=== PATIENT | female | born 1970 | race Caucasian/White ===

== ENCOUNTER 2019-06-06 18:40 | Outpatient (CLI) | payer OTHER, SELFPAY ==
--- NOTE | ~2019-06-06 | XR_ITS ---
XR foot RT 2V 06/06/2019 19:02 Indication: Right foot pain after trauma Procedure: 2 views right foot Comparison: 09/15/2008 Findings: There is osteoarthritis of the first MTP joint. No acute fracture or traumatic malalignment . Lisfranc joint intact. There are degenerative changes at the calcaneal cuboid joint. No focal soft tissue abnormality. No radiopaque foreign bodies. Impression: 1: No acute fracture. Reviewed, dictated and finalized at location A. Impression: 1: No acute fracture.
== END 2019-06-06 18:41 | disposition home or self-care (01) ==
LOC: ANHIMG 18:48
PROVIDERS: PCP Internal Medicine; Visit Provider Internal Medicine Rheumatology
DX: M79.671 Pain in right foot (principal)
CPT/HCPCS: 73620

== ENCOUNTER → 2023-04-18 15:13 | Outpatient (CLI) | payer OTHER, SELFPAY ==
--- NOTE | ~2023-04-18 | XR_ITS ---
EXAMINATION: XR hip RT min 2V DATE: 04/18/2023 15:57 INDICATION: Right hip pain. TECHNIQUE: 2 views of right hip were obtained. COMPARISON: Right hip radiographs 05/13/2017 FINDINGS: Bone alignment is normal. No fracture. There is advanced right hip osteoarthritis. IMPRESSION: 1. Advanced right hip osteoarthritis. Reviewed, dictated and finalized at location E. 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
--- NOTE | ~2023-04-18 | XR_ITS ---
Lumbosacral Spine: AP and lateral views Clinical History: Pain Findings: The normal lordotic curve is maintained. The vertebral bodies and posterior elements are i ntact. The intervertebral disc spaces are preserved. There is facet arthropathy at the lower lumbar spine. The sacroiliac joints are normally outlined. Impression: Facet arthropathy lower lumbar spine. Reviewed, dictated and finalized at [facility]. 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
--- NOTE | ~2023-04-18 | DEXA_ITS ---
Bone Density Report Name: SHEKHAR BELTRAN Age: 53 Sex: Female Ethnicity: White Date of : 1970 Indication: postmenopausal; screening for osteoporosis; hysterectomy; Referring Provider: YOKO LIZARRAGA Study: Bone densitometry was performed. Exam Date: April 18, 2023 Accession number: [id number] Bone Density: Region BMD T-score Z-score Classification AP Spine (L1-L4) 1.106 0.5 1.5 Normal Femoral Neck (Left) 0.921 0.7 1.6 Normal Total Hip (Left) 1.066 1.0 1.6 Normal Femoral Neck (Right) 0.931 0.7 1.7 Normal Total Hip (Right) 1.047 0.9 1.5 Normal Total Hip Mean 1.057 1.0 1.6 Normal World Health Organization criteria for BMD impression classify patients as: Normal (T-score at or above -1.0), Osteopenia (T-score between -1.0 and -2.5), or Osteoporosis (T-score at or below -2.5). 10-year Fracture Risk: FRAX not reported because: All T-scores for Spine Total, Hip Total, Femoral Neck at or above -1.0 Clinical Information Provided by Patient: Has used the following medications: Vitamin D Has the following medical conditions: Hysterectomy Patient maximum height was 69.75 Menopause Age: 34 No regular weight bearing exercise Onset of menses at age 11 Number of children 2 Missed period for more than 6 months in a row Impression: The patient has normal bone mass. Discussion: BONE DENSITY IS ABOVE THE MINIMUM DESIRABLE LEVEL AT ALL SKELETAL SITES TESTED. This patient?s bone mineral density is above the minimum desirable level (T-score -1.0 or better) at all sites measured. The patient should follow a healthful lifestyle (good nutrition with adequate calcium and vitamin D, and appropriate weight-bearing exercise). Follow-Up: Consider repeating this study in 5 years or sooner if there is some new clinical indication. Reported by: [facility] on 04/18/2023 3:44:00 PM. Reviewed, dictated and finalized at location ADeja MEDINA
== END ==
PROVIDERS: PCP Nurse Practitioner Adult Health; Visit Provider Nurse Practitioner Adult Health
DX: M16.11 Unilateral primary osteoarthritis, right hip (principal); M54.50 Low back pain, unspecified; Z90.710 Acquired absence of both cervix and uterus; Z78.0 Asymptomatic menopausal state
CPT/HCPCS: 72100; 73502; 77080

== ENCOUNTER 2023-04-25 15:33 | Outpatient (CLI) | payer OTHER, SELFPAY ==
--- NOTE | 2023-04-25 15:40 | ECHO_ITS ---
Patient Info Name: Meche Evans Age: 53 years : 1970 Gender: Female Ht: 68 in Wt: 298 lbs BSA: 2.62 m2 HR: 88 bpm BP: 189 / 118 mmHg Heart Rhythm: Sinus Rhythm Technical Quality: Good Exam Date: 04/25/2023 3:49 PM Exam Location: Echo Lab Patient Status: Outpatient Admit Date: 04/25/2023 Staff Ordering Physician: Xiao Garduno APRN Special Education Resource Teacher: Ravinder Russ RDCS Attending Provider: Xiao Garduno APRN Referring Physician: Shaan YEAGER; Exam Type: CA echo doppler color flow Study Info Indications - sob Complete two-dimensional, color flow and Doppler transthoracic echocardiogram is performed. Summary 1. Complete two-dimensional, color flow and Doppler transthoracic echocardiogram is performed. 2. Left ventricular chamber dimension is mildly enlarged. 3. Left ventricular systolic function is moderately reduced, estimated at 35% with relative sparing of the apex. 4. There is mildly increased left ventricular wall thickness. 5. Left ventricular septal wall motion is abnormal with septal motion related to bundle branch block. 6. The left ventricular diastolic function is grade I diastolic dysfunction. 7. Technically difficult study with limited views. 8. Limited assessment of the atrial septum. Bubble study not performed color-flow Doppler across septum inadequate for interpretation. 9. There is trace tricuspid valve regurgitation. 10. No pulmonary hypertension, estimated pulmonary arterial systolic pressure is 31 mmHg. 11. There is trace mitral valve regurgitation. 12. There is no aortic valve stenosis. 13. There is no aortic valve regurgitation. Left Ventricle Left ventricular chamber dimension is mildly enlarged. Left ventricular systolic function is moderately reduced, estimated at 35% with relative sparing of the apex. There is mildly increased left ventricular wall thickness. Left ventricular septal wall motion is abnormal with septal motion related to bundle branch block. The left ventricular diastolic function is grade I diastolic dysfunction. Technically difficult study with limited views. Right Ventricle Right ventricular chamber dimension is normal. Right ventricular systolic function is normal. Left Atria Left atrial chamber dimension is normal. Right Atria Right atrial chamber dimension is normal. Atrial Septum Limited assessment of the atrial septum. Bubble study not performed color-flow Doppler across septum inadequate for interpretation. Aortic Valve The aortic valve is not well visualized. There is no aortic valve stenosis. There is no aortic valve regurgitation. Pulmonic Valve The pulmonic valve is not well visualized. Mitral Valve The mitral valve has normal leaflets. There is trace mitral valve regurgitation. Tricuspid Valve The tricuspid valve leaflets are normal. There is trace tricuspid valve regurgitation. No pulmonary hypertension, estimated pulmonary arterial systolic pressure is 31 mmHg. Pericardium/Pleural The pericardium appears normal. There is trivial pericardial effusion. Aorta The aortic root size at the sinus of Valsalva is normal. Left Ventricular Outflow Tract Name Value Normal LVOT 2D LVOT Diameter 2.3 cm LVOT Doppler
== END 2023-04-25 15:34 | disposition home or self-care (01) ==
PROVIDERS: PCP Nurse Practitioner Adult Health; Visit Provider Nurse Practitioner Adult Health
DX: Q21.12 Patent foramen ovale (principal)
CPT/HCPCS: 93306

== ENCOUNTER 2023-09-07 16:13 | Outpatient (CLI) | payer OTHER, SELFPAY ==
--- NOTE | ~2023-09-07 | XR_ITS ---
XR chest 2V 09/07/2023 16:28 Indication: Dyspnea. Procedure: 2 view chest Comparison: No prior studies for comparison. Findings: Status post median sternotomy for CABG. Heart size upper normal. Mild pulmonary vascular co ngestion. No focal pneumonia, pleural effusion or pneumothorax. Impression: 1: Borderline heart size with pulmonary vascular congestion. Reviewed, dictated and finalized at location B. Impression: 1: Borderline heart size with pulmonary vascular congestion.
== END 2023-09-07 16:14 ==
DX: Z95.1 Presence of aortocoronary bypass graft (principal)
CPT/HCPCS: 71046

== ENCOUNTER 2023-10-18 16:15 | Outpatient (RCR) | payer OTHER, SELFPAY ==
[2023-09-22 15:47] VITALS: PULSE 91
== END 2023-11-20 14:53 | disposition home or self-care (01) ==
LOC: ANHCPREHAB 16:15
PROVIDERS: PCP Nurse Practitioner Adult Health
DX: Z95.1 Presence of aortocoronary bypass graft (principal)
CPT/HCPCS: 93798

== ENCOUNTER 2023-10-20 11:37 | Outpatient (CLI) | payer OTHER, SELFPAY ==
--- NOTE | ~2023-10-20 | US_ITS ---
EXAMINATION:US venous doppler LE LT INDICATION:Status post CABG. Left leg pain TECHNIQUE: Multiple grayscale, color flow and Doppler images of the left lower extremity deep venous systems were obtained and reviewed. COMPARISON:No prior studies for comparison. FINDINGS: The common femoral, superficial femoral and popliteal veins demonstrate normal respiratory variation, augmentation and compressibility. Color flow is also seen within the posterior tibial, pe roneal, and profunda veins. Left greater saphenous vein is been harvested. IMPRESSION: 1: No lower extremity deep venous thrombosis. Reviewed, dictated and finalized at location B.
== END 2023-10-20 11:38 ==
LOC: MICIMG 11:40
PROVIDERS: PCP Nurse Practitioner Adult Health
DX: L76.22 Postprocedural hemorrhage of skin and subcutaneous tissue following other procedure (principal); Z95.1 Presence of aortocoronary bypass graft
CPT/HCPCS: 93971